=== PATIENT | male | born 1955 ===

== ENCOUNTER 2018-11-28 12:01 | Outpatient (CLI) | payer OTHER | END 2018-11-28 12:04 | disposition home or self-care (01) | LOC: TOM 12:01 | DX: K30 Functional dyspepsia (principal); R10.30 Lower abdominal pain, unspecified; R11.0 Nausea ==

== ENCOUNTER 2021-11-12 19:41 | Inpatient (IN) | payer OTHER ==
[~2021-11-12] VITALS: Ht 182.9 cm; Wt 104.3 kg
[2021-11-12] MEDS ORDERED: AMITRIPTYLINE100 MG PO (20:04)
[2021-11-12] MEDS ORDERED: CELEBREX200MG PO ×2 (20:04→20:07)
[2021-11-12] MEDS ORDERED: ALLERGY RELIE15.8 ML NASAL (20:05)
[2021-11-12] MEDS ORDERED: OMEPRAZOLE40 MG PO (20:05)
[2021-11-12] MEDS ORDERED: DICY20TA PO (20:05)
[2021-11-12] MEDS ORDERED: ROZEREM8 MG PO (20:06)
[2021-11-12] MEDS ORDERED: TAMS0.4C PO (20:06)
[2021-11-12] MEDS ORDERED: BACTRIM DS TAB1 EACH PO (20:08)
[2021-11-12] MEDS ORDERED: [UNRECOGNIZED DRUG - OTHER] PO (20:11)
--- NOTE | 2021-11-12 20:19 | NUR ---
SE RECIBE PTE ALERTA Y ORIENTADO X3 EN AMBULANCIA EN COMPANIA DE PARAMEDICOS Y ACOMPANANTE. FAMILIAR DE PTE REFIERE QUE EL PTE PRESENTA INFECCION EN PIE CAMPBELL. SE OBSERVA AREA HUGH Y CALIENTE AL TACTO. PRAMEDICOS REFIEREN QUE EL PTE PRESENTO OVERDOSE DE VALIUM EN ANDREW HOGAR EN WAYNE.PARAMEDICOS REFIEREN QUE SE LE ADMINISTRO NARCAN A EN ANDREW HOGAR Y QUE REVIRTIO. AL MOMENTO DEL TRIAGE PTE PRESENTA VITALES ESTABLES Y NO PRESENTA DISTRES RESPIRATORIO.
--- NOTE | 2021-11-12 21:46 | NUR ---
SE CONECYA A PACIENTE A MONITOR CARDIACO OXIMETRIA DE PULSO PACIENTE EN CAMA CON BARANDAS ELEVADAS. PACIENTE DESORJENTADO X3 SE RESTRINGE [address] GIBSON AUTORIZA Y FIRMA CONCENTIMIENTO, PACIENTE CON CELLULITIS EN PIE CAMPBELL SE OBSERVA ERITEMA, Y SE PALPA PIEL CALIENTE AL TACTO. SE REALIZA INSERCION DE PONCE Y SE REALIZA ADMINISTRACION DE MEDICAMENTOS POR ORDEN MEDICA, Y ADMINISTRACION DE TERAPIA INTRAVENOSA.
--- NOTE | 2021-11-12 23:21 | NUR ---
SE RECIBE PTE AL MOMENTO DURMIENDO, ESTA CONECTADO AL MONITOR CARDIACO, NBP Y OXIMETRIA CONTINUA. TIENE CANALIZACION PATENTE ALBERTO DE EDEMA Y ERITEMA CON IV FLUDIS ESTABLECIDOS. TIENE PONCE A GRAVEDAD CON ORINA AMARILLA. PENDIENTE CONSULTA CON . TIENE RESTRICCIONES EN BRAZOS SUPERIORES, PTE PRESENTA PULSO Y AL MOMENTO PIEL INTACTA. SE TYSON PTE EN CAMA BAJA, BARANDAS ELEVADAS, FRENOS AJUSTADOS Y TIMBRE ACCESIBLE.
--- NOTE | 2021-11-13 05:15 | NUR ---
PTE ALERTA Y DESORIENTADO EN LUGAR, SE VERIFICA PRESION MANUAL Y PRESENTA 180/90MMHG, SE NOTIFICA A SOBRE PRESION, EL MISMO REFIERE ADMINISTRAR ENALAPRIL 1.25MG IV ONCE. SE ADMINISTRA MEDICAMENTO, SE MANTIENE BAJO OBSERVACION.
--- NOTE | 2021-11-13 05:53 | NUR ---
PTE ALERTA Y DESORIENTADO EN LUGAR INTENTA SALIRSE DE LA CAMA PORQUE EL REFIERE QUE TIENE QUE ORINAR, SE LE ORIENTA A PTE QUE TIENE PONCE, EL MISMO REFIERE QUE SE QUIERE QUITAR PONCE POR QUE EL NO ESTA ORINANDO CON EL PONCE. PTE CON RESTRICCIONES EN EXTREMIDADES SUPERIORES, SE SIENTE PULSO AL MOMENTO.
--- NOTE | 2021-11-13 05:54 | NUR ---
SE VERIFICA PANAL, PTE NO PRESENTA ESCRETA. SE OBSERVA PONCE PATENTE, CON ORINA AMARILLA OUTPUT DE [id number].
--- NOTE | 2021-11-13 06:30 | NUR ---
PTE ALERTA Y DESORIENTADO X3 SIGUE INTENADO SALIRSE DE LA CAMA, AGITADO, PARA IR A ORINAR, A PESAR DE QUE TIENE PONCE PATENTE AL MOMENTO. EN ADICIONAL PTE REFIERE QUE QUIERE EVACUAR, SE ORIENTA A PTE QUE TIENE UN PANAL POR EL CUAL SE BRINDARA ASEO, PTE REFIERE REFIERE QUE EL NO TIENE PANAL. SE ORIENTA A PTE SOBRE TRATAMIENTO MEDICO, PTE IGNORA INFORMACION PROVEIDA. SE NOTIFICA A MEDICO DE TURNO SOBRE STATUS DE PTE, NO HAY CAMBIO AL MOMENTO. PENDIENTE CONSULTA CON .
--- NOTE | 2021-11-13 08:11 | NUR ---
PATIENT IS RECIEVED ALERT AND ORIENTED IN PERSON, BUT NOT PLACE OR TIME. PATIENT IS RESTRICTED IN BOT UPPER EXTREMITIES. PATIENT HAS PONCE TO GRAVITY AND IVF 0.9% NACL FLOWING ACCORDING TO DOCTOR'S ORDERS. PATIENT HAS PATENT IV LINES AND CLEAN VENIPUNCTURE. PATIENT IS AGRESSIVE AND IS CONTINUOUSLY TRYING TO GET OUT OF BED. PATIENT IS EDUCATED ON FALL PROTOCOL.
--- NOTE | 2021-11-13 14:06 | NUR ---
SKIN TEAM IS NOTIFIED ABOUT PATIENT'S CONDITION.
--- NOTE | 2021-11-13 15:33 | NUR ---
SE RECIBE PTE MASCULINO DE 66 YRS ALERTA CONCIENTE Y TRANQUILO EN CAMA CON BARABDAS ELEVADA ,CONECTADO A MONITOR CARDIAOC Y OXIMETRIA. PTE SE OBSERVA CON IVF'S PATENE Y ALBERTO DE EDEMA . SE OBSERVA FOLIE CATHETE CON UN OUPUT DE COLOR AMARILLO INSTENSO. SE LE GINGER S/V LA CUAL SE DOCUMETA/ SE OBSERVA PTE RESTRINCGIO EN EXTREMIDADES SUPERIORES POR DESORIENTACION . AL MOMENTO SE MANTIENE SEDADO CON MEDICAMENTOS DESDE EL TURNO ANTERIOR. SE MANTIENE CONSULTADO CON EL DR,SERGE LA CUAL SE MANTIENE NOTIFICADO. SE OBSERVA PTE CON CELULITIS EN OSMAN SALDANA , SE OBSERVA CON EDEMA ,HUGH Y CALIENTE AL TACTO. SE OBSRVA POR CAMBIOS EN ANDREW CONDICION.
== END 2021-11-17 18:56 | disposition home or self-care (01) | DRG 602 ==
LOC: ER 19:41 → MEDJ 11-13 16:21 → ICU-2 11-13 16:21 → ICU 11-13 20:56 → MEDJ 11-15 17:50
PROVIDERS: ADMIT Internal Medicine; ATTEND Internal Medicine
PROC: 4A12X4Z Monitoring of Cardiac Electrical Activity, External Approach (ICD-10-PCS; principal; 2021-11-15)
DX: L03.116 Cellulitis of left lower limb (principal); A41.9 Sepsis, unspecified organism; L02.416 Cutaneous abscess of left lower limb; B95.62 Methicillin resistant Staphylococcus aureus infection as the cause of diseases classified elsewhere; R41.82 Altered mental status, unspecified; Z20.822 Contact with and (suspected) exposure to COVID-19; F11.129 Opioid abuse with intoxication, unspecified